=== PATIENT | male | born 1990 ===

== ENCOUNTER 2022-01-24 17:00 | Outpatient (CLI) | payer OTHER | END 2022-01-24 17:01 | disposition home or self-care (01) | LOC: SLEEPLAB 17:00 | PROVIDERS: ATTEND Specialist | DX: R06.83 Snoring (principal); G47.33 Obstructive sleep apnea (adult) (pediatric); R53.83 Other fatigue; R09.89 Other specified symptoms and signs involving the circulatory and respiratory systems; I10 Essential (primary) hypertension; G47.00 Insomnia, unspecified | CPT/HCPCS: 95800 ==